=== PATIENT | male | born 1945 | race African-American/Black ===

== ENCOUNTER 2019-11-02 11:38 | Outpatient (CLI) | payer OTHER ==
[~2019-11-02] VITALS: Ht 195.6 cm; Wt 83.0 kg
== END 2019-11-02 12:45 | disposition home or self-care (01) ==
LOC: OFIC 805 11:38
DX: J30.89 Other allergic rhinitis (principal); K11.8 Other diseases of salivary glands; R06.02 Shortness of breath; J34.2 Deviated nasal septum

== ENCOUNTER 2019-11-30 09:13 | Outpatient (CLI) | payer OTHER ==
[2019-11-30] MEDS ORDERED: AZELASTINE137 MCG/0. NASAL (13:05)
[2019-11-30] MEDS ORDERED: SINGULAIR10 MG PO (13:12)
== END 2019-11-30 12:00 | disposition home or self-care (01) ==
LOC: OFIC 805 09:13
DX: J30.89 Other allergic rhinitis (principal); D11.0 Benign neoplasm of parotid gland; J34.2 Deviated nasal septum; R06.02 Shortness of breath

== ENCOUNTER 2022-03-27 11:34 | Outpatient (CLI) | payer OTHER ==
[~2022-03-27 11:34] MED LIST: AZELASTINE137 MCG/0. NASAL; SINGULAIR10 MG PO
== END 2022-03-27 11:44 | disposition home or self-care (01) ==
LOC: LAB 11:34
PROVIDERS: ATTEND Surgery
DX: R97.20 Elevated prostate specific antigen [PSA] (principal)

== ENCOUNTER 2022-04-02 07:59 | Outpatient (CLI) | payer OTHER | END 2022-04-02 08:03 | disposition home or self-care (01) | LOC: SONOGRAMA 07:59 | PROVIDERS: ATTEND Surgery | DX: C61 Malignant neoplasm of prostate (principal); R97.20 Elevated prostate specific antigen [PSA] ==